=== PATIENT | male | born 1960 | race Caucasian/White ===

== ENCOUNTER 2018-05-22 08:06 | Day surgery (SDC) | payer OTHER ==
[~2018-05-22] VITALS: Ht 177.8 cm; Wt 102.9 kg
[~2018-05-22 08:06] MED LIST: METF500T4 PO; NS 1,000 ML IV ONE; RAMI1CAP24 PO; SIMV20TA2 PO; VITA1CAP25 PO
[2018-05-22] MEDS ORDERED: PROPOFOL 200 MG/20 ML VIAL As Ordered ONE (08:41)
--- NOTE | 2018-05-22 09:41 | ROOR ---
Patient Name: Favian Suarez Procedure Date: 05/22/2018 9:18 AM Date of : 1960 Age: 58 Room: [facility] Gender: Male Note Status: Finalized Procedure: Total Colonoscopy to Cecum Indications: High risk colon cancer surveillance: Personal history of colonic polyps, Last colonoscopy: 2012 Providers: Savage Cohen MD Referring MD: MICHAEL RODRIGUEZ MD Requesting Provider: Medicines: Monitored Anesthesia Care Complications: No immediate complications. Procedure: Pre-Anesthesia Assessment: - The heart rate, respiratory rate, oxygen saturations, blood pressure, adequacy of pulmonary ventilation, and response to care were monitored throughout the procedure. The Colonoscope was introduced through the anus and advanced to the cecum, identified by appendiceal orifice and ileocecal valve. The colonoscopy was performed without difficulty. The patient tolerated the procedure well. The quality of the bowel preparation was excellent. Findings: The perianal and digital rectal examinations were normal. Non-bleeding internal hemorrhoids were found during retroflexion. The hemorrhoids were medium-sized and Grade II (internal hemorrhoids that prolapse but reduce spontaneously). Scattered small-mouthed diverticula were found in the recto-sigmoid colon and sigmoid colon. The exam was otherwise without abnormality on direct and retroflexion views. Impression: - Non-bleeding internal hemorrhoids. - Diverticulosis in the recto-sigmoid colon and in the sigmoid colon. - The examination was otherwise normal on direct and retroflexion views. - No specimens collected. - The exam was otherwise normal to the cecum. Recommendation: - Patient has a contact number available for emergencies. The signs and symptoms of potential delayed complications were discussed with the patient. Return to normal activities tomorrow. Written discharge instructions were provided to the patient. - High fiber diet. - Discharge patient to home. - Continue present medications. - Repeat colonoscopy in 5 years for surveillance. - Return to referring physician. - The findings and recommendations were discussed with the patient's family. Savage Cohen MD Savage Cohen MD 05/22/2018 9:41:01 AM Electronically signed by Savage Cohen MD Number of Addenda: 0 Note Initiated On: 05/22/2018 9:18 AM Estimated Blood Loss: Estimated blood loss: none.
[2018-05-22 10:15] VITALS: BP 140/92
== END 2018-05-22 10:21 | disposition home or self-care (01) ==
LOC: M OPP 08:06
PROVIDERS: ATTEND Internal Medicine Gastroenterology
DX: K64.1 Second degree hemorrhoids (principal); K57.30 Diverticulosis of large intestine without perforation or abscess without bleeding; Z86.010 Personal history of colon polyps

== ENCOUNTER → 2018-06-02 | Outpatient (REF) | payer OTHER ==
[~2018-06-02] MED LIST changes: -NS 1,000 ML IV ONE
== END ==
LOC: M SFHCPLAZ 09:42
PROVIDERS: ATTEND Dermatology
DX: D48.5 Neoplasm of uncertain behavior of skin (principal)

== ENCOUNTER → 2019-10-02 | Outpatient (REF) | payer OTHER ==
[~2019-10-02] MED LIST changes: +METF-838 PO; -METF500T4 PO; -SIMV20TA2 PO; +SIMV20TA22 PO
== END ==
LOC: M LAB REF 19:23
PROVIDERS: ATTEND Dermatology
DX: L82.0 Inflamed seborrheic keratosis (principal); D22.30 Melanocytic nevi of unspecified part of face

== ENCOUNTER → 2022-04-23 | Outpatient (CLI) | payer OTHER | LOC: M CARPUL 10:13 | PROVIDERS: ATTEND Student in an Organized Health Care Education/Training Program | DX: R01.1 Cardiac murmur, unspecified (principal) ==

== ENCOUNTER 2024-02-20 10:36 | Day surgery (SDC) | payer OTHER, MEDICARE ==
[~2024-02-20] VITALS: Ht 177.8 cm; Wt 100.2 kg
[~2024-02-20 10:36] MED LIST changes: +ATOR80TA59 PO; +D3 H10002 PO; +FLOM0.4C39 PO; +METF750T36 PO; +PROB250C PO; -RAMI1CAP24 PO; +RAMI5CAP60 PO
[2024-02-20] MEDS ORDERED: propofoL 200 MG/20 ML VIAL As Ordered ONE (11:56)
[2024-02-20] MEDS ORDERED: LIDOCAINE 2% INJ 100 MG/5 ML SYRINGE As Ordered ONE (11:56)
[2024-02-20] MEDS ORDERED: fentaNYL 100 MCG/2 ML INJECTION As Ordered ONE (12:00)
[2024-02-20 12:44] VITALS: TEMP 97.2
[2024-02-20 13:05] VITALS: BP 162/90; O2SAT 98
== END 2024-02-20 13:11 | disposition home or self-care (01) ==
LOC: M OPP 10:36
PROVIDERS: ATTEND Internal Medicine Gastroenterology
DX: Z12.11 Encounter for screening for malignant neoplasm of colon (principal); Z86.0100 Personal history of colon polyps, unspecified; K64.1 Second degree hemorrhoids; K64.4 Residual hemorrhoidal skin tags; K29.50 Unspecified chronic gastritis without bleeding; R12 Heartburn; Z79.84 Long term (current) use of oral hypoglycemic drugs; Z79.899 Other long term (current) drug therapy
CPT/HCPCS: 43239; 45378; 88305; J3010

== ENCOUNTER → 2024-11-26 | Outpatient (REF) | payer MEDICARE, OTHER ==
[~2024-11-26] MED LIST changes: -FLOM0.4C39 PO; +TAMS-18 PO
== END ==
LOC: M SFHCDERM 17:25
PROVIDERS: ATTEND Nurse Practitioner Family
DX: L82.0 Inflamed seborrheic keratosis (principal)

== ENCOUNTER → 2025-01-18 | Outpatient (CLI) | payer OTHER | LOC: M EKG 15:13 | PROVIDERS: ATTEND Internal Medicine Cardiovascular Disease | DX: I49.40 Unspecified premature depolarization (principal) ==

== ENCOUNTER → 2025-01-31 | Outpatient (CLI) | payer OTHER, MEDICARE | LOC: M CARPUL 15:48 | PROVIDERS: ATTEND Internal Medicine Cardiovascular Disease | DX: R06.02 Shortness of breath (principal); R94.31 Abnormal electrocardiogram [ECG] [EKG] ==

== ENCOUNTER → 2025-02-11 | Outpatient (CLI) | payer MEDICARE, OTHER | LOC: M SLEEP HO 10:56 | PROVIDERS: ATTEND Internal Medicine Cardiovascular Disease | DX: G47.30 Sleep apnea, unspecified (principal); I27.20 Pulmonary hypertension, unspecified; I49.40 Unspecified premature depolarization ==